=== PATIENT | female | born 1990 | race Caucasian/White ===

== ENCOUNTER 2021-11-27 21:56 | Emergency (ER) | payer MEDICAID, OTHER ==
[~2021-11-27] VITALS: Ht 182.9 cm; Wt 102.1 kg
--- NOTE | 2021-11-27 22:48 | NUR ---
XRAY AT BEDSIDE.
[2021-11-27 23:21] LABS: HEMATOCRIT 32.2 % (31.2-41.9); MEAN CORPUSCULAR HEMOGLOBIN 29.8 uug (24.7-32.8); MEAN CORPUSCULAR VOLUME 88.2 fL (75.5-95.3); PLATELET COUNT (AUTO) 267 K/uL (179-408)
--- NOTE | 2021-11-27 23:23 | NUR ---
US (TAMMIE) AT BEDSIDE.
[2021-11-27 23:37] LABS: CREATININE 0.6 mg/dL (0.6-1.3); POTASSIUM 3.2 mmol/L (3.5-5.1)
[2021-11-27 23:45] LABS: BILIRUBIN,DIRECT 0.1 mg/dL (0.0-0.2); BILIRUBIN,TOTAL 0.2 mg/dL (0.2-1.0); TOTAL PROTEIN, SERUM 7.1 g/dL (6.4-8.2)
[2021-11-28] MEDS ORDERED: POTASSIUM CHLORIDE 20 MEQ TAB.PRT.SR PO ONE
[2021-11-28] MEDS ORDERED: MAGNESIUM OXIDE 400 MG TABLET PO ONE
[2021-11-28] MEDS ORDERED: MAGNESIUM OXIDE 400 MG TABLET ONE (00:10)
--- NOTE | 2021-11-28 01:37 | NUR ---
DR. MARINELLI SPOKE WITH PT FOR THE RISK AND BENEFITS OF CTA, PT HAS BEEN MADE AWARE AND VERBALIZED UNDERSTANDING. PT TAKEN DOWN FOR CT.
[2021-11-28] MEDS ORDERED: IOHEXOL 350 100 ML INFUS..BTL ONE (01:42)
[2021-11-28] MEDS ORDERED: SWABABLE VALVE TRANSFER SET EA MC ONE (01:42)
[2021-11-28] MEDS ORDERED: IV NORMAL SALINE 250 ML IV ONE (01:42)
--- NOTE | 2021-11-28 01:56 | NUR ---
PT RETURNED FROM CT.
--- NOTE | 2021-11-28 02:20 | NUR ---
Patient does not wish to proceed with medical care recommended by Dr. Rossi. Patient given information related to possible complications, up to and including , which could occur as a result of leaving the hospital at this time. Patient verbalizes understanding of risks involved due to leaving against medical advice. Patient has signed AMA form. Steady gait. No SOB or labored breathing. Afebrile. No changes in LOC.
[2021-11-28 02:30] VITALS: BP 112/76
== END 2021-11-28 02:22 | disposition left against medical advice (07) ==
LOC: ER 22:06
DX: O26.892 Other specified pregnancy related conditions, second trimester (principal); R06.02 Shortness of breath; R07.9 Chest pain, unspecified; Z88.2 Allergy status to sulfonamides; Z3A.20 20 weeks gestation of pregnancy; Z20.822 Contact with and (suspected) exposure to COVID-19
CPT/HCPCS: 36415; 71045; 71275; 80048; 80076; 83880; 84484; 84702; 85025; 85379; 87426; 93005; 93970; 99285; Q9967; 70030-TC; A4663; J7050

== ENCOUNTER 2023-06-08 23:44 | Emergency (ER) | payer MEDICAID ==
[~2023-06-08] VITALS: Ht 182.9 cm; Wt 77.1 kg
[2023-06-09] MEDS ORDERED: FERR325T28 PO (00:23)
[2023-06-09 00:58] LABS: BASOPHILS # (AUTO) 0.1 K/UL (0.0-0.2); BASOPHILS % (AUTO) 1.9 % (0.0-2.0); EOSINOPHILS # (AUTO) 0.4 K/uL (0.0-0.7); EOSINOPHILS % (AUTO) 4.7 % (0.0-7.0); HEMATOCRIT 28.8 % (31.2-41.9); LYMPHOCYTES # (AUTO) 2.6 K/uL (0.8-4.8); LYMPHOCYTES % (AUTO) 34.8 % (20.5-51.5); MEAN CORPUSCULAR HGB CONC 31 g/dL (32.3-35.6); MEAN CORPUSCULAR VOLUME 73.2 fL (75.5-95.3); MONOCYTES # (AUTO) 0.6 K/uL (0.1-1.30); MONOCYTES % (AUTO) 7.4 % (0.0-11.0); NEUTROPHILS # (AUTO) 3.8 K/uL (1.8-8.9); NEUTROPHILS % (AUTO) 51.2 % (38.5-71.5); PLATELET COUNT (AUTO) 335 K/uL (179-408); RED BLOOD CELL COUNT(AUTO) 3.93 MIL/uL (3.63-4.92); WHITE BLOOD COUNT (AUTO) 7.5 K/uL (3.8-11.8)
[2023-06-09 01:01] LABS: DIFFERENTIAL COMMENT 1
[2023-06-09 01:23] LABS: ALANINE AMINOTRANSFERASE 16 U/L (14-59); ALBUMIN 3.5 g/dL (3.4-5.0); ALKALINE PHOSPHATASE 62 U/L (50-136); ASPARTATE AMINOTRANSFERASE 10 U/L (15-37); BILIRUBIN,DIRECT 0.1 mg/dL (0.0-0.2); BILIRUBIN,TOTAL 0.1 mg/dL (0.2-1.0); CALCIUM 8.8 mg/dL (8.5-10.1); CARBON DIOXIDE 29 mmol/L (21-32); CHLORIDE 103 mmol/L (98-107); CREATININE 0.6 mg/dL (0.6-1.3); GLUCOSE 91 mg/dL (74-106); SODIUM SERUM 141 mmol/L (136-145); TOTAL PROTEIN, SERUM 7.5 g/dL (6.4-8.2); UREA NITROGEN, BLOOD 12 mg/dL (7-18)
[2023-06-09 01:25] LABS: PREGNANCY TEST SERUM QUAN 4 miul/L (0-6)
[2023-06-09 01:26] LABS: NT-PRO BNP 62 pg/mL (0-125)
[2023-06-09 03:58] VITALS: BP 115/62; TEMP 97.5; O2SAT 99
== END 2023-06-09 03:58 | disposition home or self-care (01) ==
LOC: ER 23:49
DX: R55 Syncope and collapse (principal); R10.2 Pelvic and perineal pain; Z88.2 Allergy status to sulfonamides; Z79.899 Other long term (current) drug therapy
CPT/HCPCS: 36415; 84484; 85025; 85730; 86850; 86900; 86901; A4663